=== PATIENT | male | born 1990 | race Caucasian/White ===

== ENCOUNTER 2018-07-27 21:57 | Emergency (ER) | payer SELFPAY ==
[~2018-07-27] VITALS: Ht 180.3 cm; Wt 99.8 kg
[2018-07-27 22:00] VITALS: Ht 180.3 cm; Wt 99.8 kg
[2018-07-27 22:35] LABS: HEMATOCRIT 48.7 % (42.0-54.0); HEMOGLOBIN 17.4 g/dL (13.5-17.5); MCH 30.6 pg (26.0-34.0); MCHC 35.7 g/dL (31.0-37.0); MCV 85.6 fL (80.0-100.0); MEAN PLATELET VOLUME 9.9 fL (7.4-10.4); PLATELET COUNT 219 10x3/uL (130-400); RBC 5.69 10x6/uL (4.20-6.10); RDW 13.4 % (11.5-14.5); WBC 9.3 10x3/uL (4.8-10.8)
[2018-07-27 22:53] LABS: ALBUMIN 3.8 g/dL (3.4-5.0); ALKALINE PHOSPHATASE 64 U/L (46-116); ALT (SGPT) 74 U/L (10-68); AMYLASE - SERUM 48 U/L (25-115); BILIRUBIN - TOTAL 0.35 mg/dL (0.2-1.3); CALC OSMOLALITY 279 mosm/kg (275-300); CALCIUM 8.8 mg/dL (8.5-10.1); CARBON DIOXIDE 29.5 mmol/L (21.0-32.0); CHLORIDE - SERUM 102 mmol/L (98-107); CREATININE - SERUM 1.3 mg/dL (0.6-1.3); GLUCOSE 126 mg/dL (74-106); LIPASE 135 U/L (73-393); POTASSIUM - SERUM 3.8 mmol/L (3.5-5.1); PROTEIN - SERUM 7.7 g/dL (6.4-8.2); SODIUM 139 mmol/L (136-145); UREA NITROGEN 12 mg/dL (7-18); eGFR NON AFRICAN AMERICAN 69 mL/min (90-120)
[2018-07-27 22:54] LABS: TROPONIN-I < 0.017 ng/mL (0.000-0.060)
[2018-07-27 22:59] LABS: BASOPHILS 1 % (0-2); EOSINOPHILS 3 % (0-7); LYMPHOCYTES 34 % (15-50); MONOCYTES 5 % (2-11); NEUTROPHILS 55 % (40-80); PLATELET ESTIMATE NORMAL
[2018-07-28 00:06] LABS: APPEARANCE CLEAR (CLEAR); BILIRUBIN NEGATIVE (NEGATIVE); COLOR YELLOW (YELLOW); GLUCOSE NEGATIVE (NEGATIVE); KETONE NEGATIVE (NEGATIVE); NITRITE NEGATIVE (NEGATIVE); PROTEIN NEGATIVE (NEGATIVE); UROBILINOGEN NORMAL (NORMAL)
[2018-07-28] MEDS ORDERED: ZOFRAN4 MG PO (01:00)
[2018-07-28] MEDS ORDERED: LOMOTIL 2.5-0.1 EAC1 PO (01:00)
[2018-07-28] MEDS ORDERED: STERAPRED DS 1010 MG PO (01:00)
[2018-07-28] MEDS ORDERED: PREDNISONE20 MG PO (01:00)
[2018-07-28 01:31] VITALS: BP 148/58
== END 2018-07-28 01:31 | disposition home or self-care (01) ==
LOC: D.ER 21:57
PROVIDERS: Family Medicine
DX: K50.111 Crohn's disease of large intestine with rectal bleeding (principal); R11.2 Nausea with vomiting, unspecified; R10.9 Unspecified abdominal pain; F17.200 Nicotine dependence, unspecified, uncomplicated